=== PATIENT | female | born 1995 | race Caucasian/White ===

== ENCOUNTER → 2017-10-15 16:55 | Outpatient (CLI) | payer OTHER, SELFPAY ==
[2017-10-15 17:18] LABS: Hematocrit 43.4 % (37-47); Hemoglobin 14.7 g/dl (12.0-15.0); Mean Corp Hgb Conc 33.9 g/gl (32-36); Mean Corpuscular Volume 97.3 fL (81-99); Platelet Count 191 K/mm3 (150-450); RBC Distribution Width CV 12.6 % (11.6-14.6); RBC Distribution Width SD 44.8 fl (35.1-43.9); Red Blood Count 4.46 M/mm3 (4.2-5.4); Scan Indicated on CBC? Y/N NO; White Blood Count 5.8 K/mm3 (4.4-11.0)
[2017-10-15 17:40] LABS: Hemoglobin A1c 5.4 % (4.2-6.3)
[2017-10-15 17:48] LABS: hCG Titer Quant., Serum < 1 mIU/mL (<9 non-preg)
[2017-10-15 17:54] LABS: Estradiol 30.6 pg/mL; Free T3 3.5 pg/mL (2.18-3.98); Thyroid Stim Hormone (TSH) 0.72 uIU/mL (0.358-3.74)
[2017-10-16 10:05] LABS: Progesterone Level 1.32 ng/mL (See Comment)
== END ==
PROVIDERS: Visit Provider Obstetrics & Gynecology
DX: N80.9 Endometriosis, unspecified (principal); R10.2 Pelvic and perineal pain
CPT/HCPCS: 36415; 82670; 83036; 84144; 84403; 84439; 84443; 84481; 84702; 85027

== ENCOUNTER → 2017-10-21 10:22 | Outpatient (CLI) | payer OTHER, SELFPAY ==
--- NOTE | 2017-10-21 10:28 | US_ITS ---
STUDY: ULTRASOUND OF THE FEMALE PELVIS - COMPLETE REASON FOR EXAM: Female, 22 years old. Endometriosis. LMP: October 14, 2017 TECHNIQUE: Transabdominal and Transvaginal TECHNICAL QUALITY: Adequate. COMPARISON: None. FINDINGS: The uterus is anteverted and is in a midline position. The uterus measures 6.2 x 4.1 x 2.6 cm. There is a Nabothian cyst of the cervix. The endometrium measures 5.0 mm in thickness, and is heterogeneous (striated). There is no demonstrated endometrial mass. There is no demonstrated myometrial mass. I.U.D. - The patient does not have an I.U.D. The right ovary is visualized. The right ovary measures 3.2 x 2.4 x 1.8 cm. There is a simple right ovarian cyst which measures up to 1 cm. There is normal arterial and normal venous vascularity. The left ovary is visualized. The left ovary measures 2.5 x 1.9 x 2.0 cm. There is a simple left ovarian cyst which measures up to 1.1 cm. There is normal arterial and normal venous vascularity. There is no fluid in the cul-de-sac. Polycystic ovary disease: No. US/Pelvic (Non ) IMPRESSION: Within normal limits examination. Electronically Signed: Gaby Green MD at 16:58 EDT Tel , Service support ,
--- NOTE | 2017-10-21 10:54 | US_ITS ---
STUDY: ULTRASOUND OF THE FEMALE PELVIS - COMPLETE REASON FOR EXAM: Female, 22 years old. Endometriosis. LMP: October 14, 2017 TECHNIQUE: Transabdominal and Transvaginal TECHNICAL QUALITY: Adequate. COMPARISON: None. FINDINGS: The uterus is anteverted and is in a midline position. The uterus measures 6.2 x 4.1 x 2.6 cm. There is a Nabothian cyst of the cervix. The endometrium measures 5.0 mm in thickness, and is heterogeneous (striated). There is no demonstrated endometrial mass. There is no demonstrated myometrial mass. I.U.D. - The patient does not have an I.U.D. The right ovary is visualized. The right ovary measures 3.2 x 2.4 x 1.8 cm. There is a simple right ovarian cyst which measures up to 1 cm. There is normal arterial and normal venous vascularity. The left ovary is visualized. The left ovary measures 2.5 x 1.9 x 2.0 cm. There is a simple left ovarian cyst which measures up to 1.1 cm. There is normal arterial and normal venous vascularity. There is no fluid in the cul-de-sac. Polycystic ovary disease: No. US/Transvaginal Non- IMPRESSION: Within normal limits examination. Electronically Signed: Gaby Green MD at 16:58 EDT Tel , Service support ,
== END ==
PROVIDERS: Family Provider Family Medicine; PCP Family Medicine; Visit Provider Obstetrics & Gynecology
DX: N80.9 Endometriosis, unspecified (principal); R10.2 Pelvic and perineal pain
CPT/HCPCS: 76830; 76856; 93976